=== PATIENT | female | born 1985 | race Caucasian/White ===

== ENCOUNTER 2017-11-21 07:00 | Inpatient (IN) | payer OTHER ==
[2017-11-21] MEDS ORDERED: Dibucaine 1% 28.35 GM TUBE PR PRN (08:11)
[2017-11-21] MEDS ORDERED: Acetaminophen TAB* 325 MG PO PRN (08:11)
[2017-11-21] MEDS ORDERED: Witch Hazel PAD* JAR TOPICAL PRN (08:11)
[2017-11-21] MEDS ORDERED: Glycerin ADULT SUPP PR PRN (08:11)
[2017-11-21] MEDS ORDERED: OXYTOCIN* 10 UNITS/ML 1 ML VIAL IM PRN (08:20)
[2017-11-21] MEDS ORDERED: Ibuprofen TAB* 600 MG ONE (08:27)
[2017-11-21] MEDS: Ibuprofen TAB* 600 MG PO PRN ×2 (08:28→20:24)
[2017-11-21] MEDS: Simethicone TAB* 80 MG TAB.CHEW PO SCH ×3 (09:30→17:47)
[2017-11-21] MEDS: Docusate CAP* 100 MG PO SCH ×3 (10:50→21:01)
[2017-11-22] MEDS: Ibuprofen TAB* 600 MG PO PRN ×3 (04:00→16:47)
[2017-11-22 06:51] LABS: Hematocrit 33 % (35-47); Hemoglobin 11.1 g/dl (12.0-16.0); Mean Corpuscular HGB Conc 34 g/dl (31-36); Mean Corpuscular Hemoglobin 30 pg (27-31); Mean Corpuscular Volume 88 fL (80-97); Mean Platelet Volume 9 um3 (7.4-10.4); Platelet Count 259 10^3/ul (150-450); Red Blood Count 3.75 10^6/ul (4.0-5.4); Red Cell Distribution Width 13 % (10.5-15); White Blood Count 17.7 10^3/ul (3.5-10.8)
[2017-11-22] MEDS: Docusate CAP* 100 MG PO SCH ×3 (08:55→21:07)
[2017-11-22] MEDS ORDERED: Ferrous Gluconate TAB* 324 MG TAB PO SCH (09:00)
[2017-11-23] MEDS: Ibuprofen TAB* 600 MG PO PRN ×2 (00:34→08:01)
[2017-11-23] MEDS: Docusate CAP* 100 MG PO SCH (08:01)
[2017-11-23 10:26] VITALS: BP 137/83
== END 2017-11-23 10:30 | disposition home or self-care (01) | DRG 775 ==
LOC: MCHOBOUT 07:00 → MCHOB 07:22
PROVIDERS: ADMIT Midwife; ATTEND Midwife
PROC: 4A1HX4Z Monitoring of Products of Conception, Cardiac Electrical Activity, External Approach (ICD-10-PCS; principal; 2017-11-21)
PROC: 10E0XZZ Delivery of Products of Conception, External Approach (ICD-10-PCS; 2017-11-21)
DX: O70.0 First degree perineal laceration during delivery (principal); Z37.0 Single live birth; Z88.8 Allergy status to other drugs, medicaments and biological substances; Z3A.38 38 weeks gestation of pregnancy
CPT/HCPCS: 36415; 85027; A9270-GY